=== PATIENT | female | born 1990 | race Two or more races ===

== ENCOUNTER 2018-08-17 19:10 | Emergency (ER) | payer BC ==
[2018-08-17 19:20] VITALS: BP 106/60
[2018-08-17] MEDS ORDERED: OXYCODONE-ACETAMINOPHEN 5-325 MG TABLET PO ONE (19:30)
--- NOTE | 2018-08-17 19:33 | ER Document Report ---
ED Medical Screen (RME) - General Chief Complaint: Lower Abdominal Pain Stated Complaint: ABDOMINAL PAIN Time Seen by Provider: 08/17/18 19:28 TRAVEL OUTSIDE OF THE [place] IN LAST 30 DAYS: No - HPI Patient complains to provider of: Pelvic cramping Onset: Other - 28-year-old female who presents for evaluation of pelvic cramping in the setting of having an IUD placed 2 weeks prior. The cramping has become unbearable, today it was so much worse she presented for further evaluation. She states that she cannot tolerate anymore would like this removed. Denies any fevers or chills, vaginal discharge, has not checked to see if the strings are still there. - Related Data Allergies/Adverse Reactions: No Known Allergies Allergy (Verified 08/17/18 19:24) Past Medical History Renal/ Medical History: Denies: Hx Peritoneal Dialysis Physical Exam - Vital signs Vitals: Temp Pulse Resp BP Pulse Ox 99.2 F 62 16 106/60 100 08/17/18 19:19 08/17/18 19:19 08/17/18 19:19 08/17/18 19:19 08/17/18 19:19 Course - Re-evaluation Re-evalutation: 08/17/18 19:32 I performed a rapid medical screening examination on this patient. She will need to be evaluated more thoroughly. She is requested that her IUD be removed, I did speak to her that this may not be a possibility through the emergency department. - Vital Signs Vital signs: Temp Pulse Resp BP Pulse Ox 99.2 F 62 16 106/60 100 08/17/18 19:19 08/17/18 19:19 08/17/18 19:19 08/17/18 19:19 08/17/18 19:19
--- NOTE | 2018-08-17 20:20 | ER Document Report ---
ED General - General Chief Complaint: Lower Abdominal Pain Stated Complaint: ABDOMINAL PAIN Time Seen by Provider: 08/17/18 19:28 Notes: Patient is a 28-year-old female presenting to the emergency room complaining of suprapubic abdominal cramping. Patient states she got an IUD placed 2 weeks ago at her [facility] in [place]. States since then has had intermittent lower abdominal cramping. States that today the pain has gotten too intense which is why she presents to the emergency room. Patient states she did not call her [facility] in [place] nor does she know the name of the IUD that was placed. Patient denies any fevers, vomiting, dysuria, vaginal discharge, chest pain or shortness of breath. Past medical history: None Medications: None Allergies: None Patient is unaware of her last menstrual period. States that her menstrual periods have been irregular since they started. TRAVEL OUTSIDE OF THE [place] IN LAST 30 DAYS: No - Related Data Allergies/Adverse Reactions: No Known Allergies Allergy (Verified 08/17/18 19:24) Past Medical History - General Information source: Patient - Social History Smoking Status: Never Smoker Lives with: Alone Family History: Reviewed & Not Pertinent Patient has suicidal ideation: No Patient has homicidal ideation: No Renal/ Medical History: Denies: Hx Peritoneal Dialysis Review of Systems - Review of Systems Constitutional: See HPI EENT: No symptoms reported Cardiovascular: See HPI Respiratory: No symptoms reported Gastrointestinal: See HPI Genitourinary: See HPI Female Genitourinary: See HPI Musculoskeletal: See HPI Skin: No symptoms reported Hematologic/Lymphatic: See HPI Neurological/Psychological: No symptoms reported Physical Exam - Vital signs Vitals: Temp Pulse Resp BP Pulse Ox 99.2 F 62 16 106/60 100 08/17/18 19:19 08/17/18 19:19 08/17/18 19:19 08/17/18 19:19 08/17/18 19:19 - Notes Notes: GENERAL: Alert, interacts well. No acute distress. HEAD: Normocephalic, atraumatic. EYES: Pupils equal, round, and reactive to light. Extraocular movements intact. ENT: Oral mucosa moist, tongue midline. NECK: Full range of motion. Supple. Trachea midline. LUNGS: Clear to auscultation bilaterally, no wheezes, rales, or rhonchi. No respiratory distress. HEART: Regular rate and rhythm. No murmur ABDOMEN: Soft, Non-distended. Bowel sounds present in all 4 quadrants. Minor suprapubic tenderness upon palpation. Patient states a lot better since pain medication. No Calderon's sign, or McBurney's point tenderness. EXTREMITIES: Moves all 4 extremities spontaneously. No edema, normal radial and dorsalis pedis pulses bilaterally. No cyanosis. BACK: no cervical, thoracic, lumbar midline tenderness. No saddle anesthesia, normal distal neurovascular exam. NEUROLOGICAL: Alert and oriented x3. Normal speech. PSYCH: Normal affect, normal mood. SKIN: Warm, dry, normal turgor. No rashes or lesions noted. PELVIC: To IUD strings seen coming out of the cervix, no cervical motion tenderness or adnexal tenderness. Patient currently on her period scant blood in canal with no other discharge noted. no malodor. Course - Re-evaluation Re-evalutation: I was able to see 2 IUD strings coming out of cervical os, discussed with patient likely that IUD is in the right position. Discussed need for follow-up with [facility] for possible IUD removal. Patient is currently pain-free and ready for discharge. - Vital Signs Vital signs: Temp Pulse Resp BP Pulse Ox 99.2 F 62 16 106/60 100 08/17/18 19:19 08/17/18 19:19 08/17/18 19:19 08/17/18 19:19 08/17/18 19:19 Discharge - Discharge Clinical Impression: IUD check up Condition: Stable Disposition: HOME, SELF-CARE Additional Instructions: As we discussed I was able to see your IUD strings coming out of your cervix. This suggests that the IUD is in the right place. Due to you having no signs of infection at this time you must follow-up with [facility], phone numbers will be given. Take [id number] Tylenol or Motrin for your discomfort. Return to the emergency room for any other concerning symptoms. Referrals: RICARDO PABLO MD [ACTIVE STAFF] - Follow up as needed
== END 2018-08-17 22:22 | disposition home or self-care (01) ==
LOC: ER 19:10
DX: Z30.431 Encounter for routine checking of intrauterine contraceptive device (principal); R10.30 Lower abdominal pain, unspecified
CPT/HCPCS: 81025; 99284